=== PATIENT | male | born 1950 | race Caucasian/White ===

== ENCOUNTER 2020-05-08 17:27 | Observation (INO) ==
[2020-05-08] MEDS ORDERED: Naloxone 0.4 MG/ML INJ IVP PRN ×2 (19:46→19:49)
[2020-05-08] MEDS ORDERED: *HR* Promethazine 25 MG/ML VIAL IVP PRN (19:49)
[2020-05-08] MEDS: 0.9 % Sodium Chloride 1,000 ML IVC SCH (21:07)
[2020-05-08] MEDS: *HR* Heparin 5,000 UNIT/ML VIAL SQ SCH (21:12)
[2020-05-08] MEDS: Lactulose 200 GM, Sodium Chloride IRRigation 700 ML RC SCH (22:15)
[2020-05-09] MEDS: *HR* Heparin 5,000 UNIT/ML VIAL SQ SCH ×3 (04:33→19:51)
[2020-05-09] MEDS: 0.9 % Sodium Chloride 1,000 ML IVC SCH (04:34)
[2020-05-09 06:02] LABS: Basophils % 0.3 %; Hematocrit 38.7 % (37.5-50.1); Hemoglobin 12.5 g/dL (12.9-16.9); Lymphocytes % 19.8 %; Mean Corpuscular HGB Conc 32.3 g/dL (31.6-35.5); Red Cell Distribution Width 14.6 % (11.5-14.5)
[2020-05-09 06:04] LABS: Eosinophils # 0.1 K/mcL (0.0-0.6); Eosinophils % 1.9 %; Immature Granulocytes % 0.2 % (0-4); Immature Platelets 2.8 % (1.1-6.1); Lymphocytes # 1.2 K/mcL (0.6-4.6); Mean Corpuscular Hemoglobin 33.7 pg (28.0-33.3); Mean Corpuscular Volume 104.3 fL (83.0-100.0); Mean Platelet Volume 12.1 fL (9.4-12.4); Monocytes # 0.5 K/mcL (0.0-1.3); Monocytes % 8.4 %; Neutrophils # 4.1 K/mcL (1.6-8.9); Red Blood Count 3.71 M/mcL (4.19-5.50); Segmented Neutrophils % 69.4 %; White Blood Count 5.9 K/mcL (4.3-11.1)
[2020-05-09 06:10] LABS: INR 1.2
[2020-05-09 06:13] LABS: Platelet Count 69 K/mcL (140-400)
[2020-05-09 06:28] LABS: Albumin 2.7 g/dL (3.5-5.7); Albumin/Globulin Ratio 0.8 (1.1-2.2); Bilirubin,Total 1.7 mg/dL (0.3-1.0); Calcium 10.4 mg/dL (8.6-10.3); Globulin 3.2 g/dL (2.4-3.5); Phosphorous 2.7 mg/dL (2.7-4.5); Potassium 4.2 mEq/L (3.5-5.1); Total Protein 5.9 g/dL (6.4-8.9)
[2020-05-09 06:49] LABS: Folate 12.6 ng/mL (3.0-16.0)
[2020-05-09] MEDS: Lactulose 200 GM, Sodium Chloride IRRigation 700 ML RC SCH ×2 (08:05→08:07)
[2020-05-09] MEDS ORDERED: Lactulose Oral Soln 20 GM/30 ML UDC PO SCH (09:00)
[2020-05-09] MEDS ORDERED: Furosemide 40 MG TABLET PO SCH (09:00)
[2020-05-09] MEDS ORDERED: Metoprolol XL (24 HR) Succ 25 MG TAB.ER.24H PO SCH (09:00)
[2020-05-09] MEDS ORDERED: Albumin 25% 25gram/100mL 25 GM/100 ML IV.SOLN IVPB ONE (10:52)
[2020-05-09] MEDS ORDERED: Albumin 25% 25gram/100mL 25 GM/100 ML IV.SOLN IVC SCH ×2 (13:30→13:45)
[2020-05-09] MEDS: Lactulose Oral Soln 20 GM/30 ML UDC PO SCH ×2 (14:18→19:53)
[2020-05-09] MEDS ORDERED: Metoprolol XL (24 HR) Succ 50 MG TAB.ER.24H PO SCH (21:00)
[2020-05-10 04:06] LABS: Hematocrit 31.9 % (37.5-50.1); Hemoglobin 10.3 g/dL (12.9-16.9); Immature Platelets 4.6 % (1.1-6.1); Mean Corpuscular HGB Conc 32.3 g/dL (31.6-35.5); Mean Corpuscular Hemoglobin 33.9 pg (28.0-33.3); Mean Corpuscular Volume 104.9 fL (83.0-100.0); Mean Platelet Volume 12.8 fL (9.4-12.4); Red Blood Count 3.04 M/mcL (4.19-5.50); Red Cell Distribution Width 14.6 % (11.5-14.5); White Blood Count 3.7 K/mcL (4.3-11.1)
[2020-05-10 04:23] LABS: Albumin/Globulin Ratio 1.1 (1.1-2.2); Bilirubin,Total 1.8 mg/dL (0.3-1.0); Calcium 10.2 mg/dL (8.6-10.3); Globulin 2.7 g/dL (2.4-3.5); Potassium 3.9 mEq/L (3.5-5.1); Total Protein 5.7 g/dL (6.4-8.9)
[2020-05-10] MEDS: *HR* Heparin 5,000 UNIT/ML VIAL SQ SCH (05:40)
[2020-05-10 06:53] VITALS: BP 142/67
[2020-05-10] MEDS ORDERED: Albumin 25% 25gram/100mL 25 GM/100 ML IV.SOLN IVC SCH (09:00)
== END 2020-05-10 11:52 | disposition home or self-care (01) ==
LOC: 2NNU → SUATTDRO 19:09 → 3ANU 05-09 17:39
PROVIDERS: ADMIT Pharmacist; ATTEND Internal Medicine

== ENCOUNTER 2020-07-10 16:01 | Inpatient (IN) ==
[2020-07-10] MEDS ORDERED: Ondansetron 4 MG/2 ML VIAL IVP PRN (18:11)
[2020-07-10] MEDS ORDERED: 0.9 % Sodium Chloride 1,000 ML IVC SCH (18:30)
[2020-07-10] MEDS: Lactulose Oral Soln 20 GM/30 ML UDC PO SCH (18:30)
[2020-07-10] MEDS: Lactulose 200 GM, Sodium Chloride IRRigation 700 ML RC SCH (21:00)
[2020-07-11] MEDS: Lactulose Oral Soln 20 GM/30 ML UDC PO SCH ×6 (00:11→23:31)
[2020-07-11] MEDS: Lactulose 200 GM, Sodium Chloride IRRigation 700 ML RC SCH ×4 (00:39→23:32)
[2020-07-11 01:58] LABS: INR 1.2; Mean Corpuscular HGB Conc 32.8 g/dL (31.6-35.5); Red Cell Distribution Width 14.8 % (11.5-14.5)
[2020-07-11 02:00] LABS: Hematocrit 33.8 % (37.5-50.1); Hemoglobin 11.1 g/dL (12.9-16.9); Immature Platelets 3.1 % (1.1-6.1); Mean Corpuscular Hemoglobin 34.5 pg (28.0-33.3); Mean Platelet Volume 12.2 fL (9.4-12.4); Red Blood Count 3.22 M/mcL (4.19-5.50); White Blood Count 4.8 K/mcL (4.3-11.1)
[2020-07-11 02:17] LABS: Albumin 2.7 g/dL (3.5-5.7); Bilirubin,Direct 0.5 mg/dL (0.0-0.2); Bilirubin,Indirect 1.7 mg/dL (0.0-1.0); Bilirubin,Total 2.2 mg/dL (0.3-1.0); Calcium 11.8 mg/dL (8.6-10.3); Globulin 2.7 g/dL (2.4-3.5); Phosphorous 2.6 mg/dL (2.7-4.5); Potassium 3.9 mEq/L (3.5-5.1); Total Protein 5.4 g/dL (6.4-8.9)
[2020-07-11] MEDS ORDERED: Dextrose Gel 15 GM/37.5 ML TUBE PO PRN ×2 (08:23)
[2020-07-11] MEDS ORDERED: *HR* Dextrose 50 % in Water (Vial) 50 ML VIAL IVP PRN (08:23)
[2020-07-11] MEDS ORDERED: D5% in Water 1,000 ML IVC PRN (08:23)
[2020-07-11] MEDS: Albumin Human 5% 12.5 GM/250 ML IV.SOLN IVC SCH ×2 (09:11→13:17)
[2020-07-11] MEDS: Insulin LISPRO 300 UNITS/3 ML VIAL SQ SCH ×3 (13:13→23:58)
[2020-07-11 18:25] LABS: Hemoglobin 10.2 g/dL (12.9-16.9)
[2020-07-12 06:49] LABS: INR 1.2; Prothrombin Time 13.7 Seconds (9.4-12.1)
[2020-07-12 06:51] LABS: Hemoglobin 9.9 g/dL (12.9-16.9); Mean Corpuscular Volume 106.8 fL (83.0-100.0)
[2020-07-12 06:53] LABS: Hematocrit 29.7 % (37.5-50.1); Immature Platelets 2.9 % (1.1-6.1); Mean Corpuscular HGB Conc 33.3 g/dL (31.6-35.5); Mean Corpuscular Hemoglobin 35.6 pg (28.0-33.3); Mean Platelet Volume 12.4 fL (9.4-12.4); Red Blood Count 2.78 M/mcL (4.19-5.50); Red Cell Distribution Width 14.6 % (11.5-14.5); White Blood Count 3.3 K/mcL (4.3-11.1)
[2020-07-12 07:14] LABS: Albumin 2.7 g/dL (3.5-5.7); Albumin/Globulin Ratio 1.1 (1.1-2.2); Bilirubin,Direct 0.5 mg/dL (0.0-0.2); Bilirubin,Indirect 1.5 mg/dL (0.0-1.0); Calcium 11.6 mg/dL (8.6-10.3); Globulin 2.4 g/dL (2.4-3.5); Magnesium 1.9 mg/dL (1.6-2.6); Phosphorous 5.4 mg/dL (2.7-4.5); Potassium 3.3 mEq/L (3.5-5.1); Total Protein 5.1 g/dL (6.4-8.9)
[2020-07-12] MEDS: Insulin LISPRO 300 UNITS/3 ML VIAL SQ SCH ×4 (09:47→23:42)
[2020-07-12] MEDS: Lactulose 200 GM, Sodium Chloride IRRigation 700 ML RC SCH ×2 (10:05→11:35)
[2020-07-12] MEDS: Lactulose Oral Soln 20 GM/30 ML UDC PO SCH ×4 (10:05→20:21)
[2020-07-13] MEDS: Lactulose Oral Soln 20 GM/30 ML UDC PO SCH ×5 (00:27→20:32)
[2020-07-13 05:26] LABS: Immature Granulocytes % 0.3 % (0-4)
[2020-07-13 05:28] LABS: Basophils % 0.8 %; Eosinophils # 0.2 K/mcL (0.0-0.6); Eosinophils % 4.2 %; Hematocrit 30.9 % (37.5-50.1); Hemoglobin 10.2 g/dL (12.9-16.9); Immature Platelets 3.8 % (1.1-6.1); Lymphocytes # 0.7 K/mcL (0.6-4.6); Lymphocytes % 20.3 %; Mean Corpuscular Hemoglobin 34.8 pg (28.0-33.3); Mean Corpuscular Volume 105.5 fL (83.0-100.0); Mean Platelet Volume 11.5 fL (9.4-12.4); Monocytes # 0.3 K/mcL (0.0-1.3); Monocytes % 8.8 %; Neutrophils # 2.3 K/mcL (1.6-8.9); Red Blood Count 2.93 M/mcL (4.19-5.50); Red Cell Distribution Width 15.2 % (11.5-14.5); Segmented Neutrophils % 65.6 %; White Blood Count 3.5 K/mcL (4.3-11.1)
[2020-07-13 05:30] LABS: Platelet Count 54 K/mcL (140-400)
[2020-07-13 05:42] LABS: Calcium 11.5 mg/dL (8.6-10.3); Phosphorous 4.1 mg/dL (2.7-4.5); Potassium 4.1 mEq/L (3.5-5.1)
[2020-07-13] MEDS: Insulin LISPRO 300 UNITS/3 ML VIAL SQ SCH ×3 (06:14→16:55)
[2020-07-13] MEDS: amLODIPine 5 MG TABLET PO SCH (08:40)
[2020-07-13] MEDS: Metoprolol XL (24 HR) Succ 25 MG TAB.ER.24H PO SCH (08:40)
[2020-07-13] MEDS: Vitamin B Complex/Vit C/Vit E 1 EACH TABLET PO SCH (08:40)
[2020-07-14] MEDS: Lactulose Oral Soln 20 GM/30 ML UDC PO SCH ×6 (02:32→23:15)
[2020-07-14 03:11] LABS: VBG Ionized Calcium 1.62 mmol/L (1.15-1.35)
[2020-07-14 03:25] LABS: Calcium 10.9 mg/dL (8.6-10.3); Magnesium 1.8 mg/dL (1.6-2.6); Phosphorous 2.7 mg/dL (2.7-4.5); Potassium 4.4 mEq/L (3.5-5.1)
[2020-07-14] MEDS: amLODIPine 5 MG TABLET PO SCH (08:06)
[2020-07-14] MEDS: Spironolactone 25 MG TABLET PO SCH (08:06)
[2020-07-14] MEDS: Vitamin B Complex/Vit C/Vit E 1 EACH TABLET PO SCH (08:06)
[2020-07-14] MEDS: Metoprolol XL (24 HR) Succ 25 MG TAB.ER.24H PO SCH (08:07)
[2020-07-15] MEDS: Metoprolol XL (24 HR) Succ 25 MG TAB.ER.24H PO SCH (07:50)
[2020-07-15] MEDS: Spironolactone 25 MG TABLET PO SCH (07:50)
[2020-07-15] MEDS: amLODIPine 5 MG TABLET PO SCH (07:50)
[2020-07-15] MEDS: Vitamin B Complex/Vit C/Vit E 1 EACH TABLET PO SCH (07:50)
[2020-07-15] MEDS: Lactulose Oral Soln 20 GM/30 ML UDC PO SCH ×5 (07:51→23:07)
[2020-07-15 08:28] LABS: Calcium 11.5 mg/dL (8.6-10.3); Magnesium 1.8 mg/dL (1.6-2.6); Potassium 4.7 mEq/L (3.5-5.1)
[2020-07-15] MEDS ORDERED: 0.9 % Sodium Chloride 1,000 ML IVC SCH (09:30)
[2020-07-15] MEDS ORDERED: Isovue-370 500 ML BOTTLE IVP ONE (09:31)
[2020-07-15 13:34] LABS: % Iron Saturation 84 % (20-55); Iron 138 mcg/dL (65-175); Transferrin 118 mg/dL (203-362)
[2020-07-15 13:39] LABS: Ferritin 425 ng/mL (20-250)
[2020-07-15] MEDS ORDERED: Gadolinium Contrast Agent (WT Based) IV PRN (14:17)
[2020-07-16 02:29] LABS: Basophils % 0.8 %; Eosinophils # 0.3 K/mcL (0.0-0.6); Eosinophils % 6.2 %; Hematocrit 34.2 % (37.5-50.1); Hemoglobin 11.3 g/dL (12.9-16.9); Immature Granulocytes % 0.4 % (0-4); Lymphocytes # 1.5 K/mcL (0.6-4.6); Lymphocytes % 32.7 %; Mean Corpuscular Hemoglobin 34.9 pg (28.0-33.3); Mean Corpuscular Volume 105.6 fL (83.0-100.0); Mean Platelet Volume 11.8 fL (9.4-12.4); Monocytes # 0.4 K/mcL (0.0-1.3); Monocytes % 8.3 %; Neutrophils # 2.4 K/mcL (1.6-8.9); Platelet Count 69 K/mcL (140-400); Red Blood Count 3.24 M/mcL (4.19-5.50); Red Cell Distribution Width 15.4 % (11.5-14.5); Segmented Neutrophils % 51.6 %; White Blood Count 4.7 K/mcL (4.3-11.1)
[2020-07-16 02:47] LABS: Calcium 12.2 mg/dL (8.6-10.3); Magnesium 1.8 mg/dL (1.6-2.6); Phosphorous 3.6 mg/dL (2.7-4.5); Potassium 4.6 mEq/L (3.5-5.1)
[2020-07-16] MEDS: Lactulose Oral Soln 20 GM/30 ML UDC PO SCH ×4 (09:24→20:12)
[2020-07-16] MEDS: Metoprolol XL (24 HR) Succ 25 MG TAB.ER.24H PO SCH (09:29)
[2020-07-16] MEDS: Vitamin B Complex/Vit C/Vit E 1 EACH TABLET PO SCH (09:29)
[2020-07-16] MEDS: amLODIPine 5 MG TABLET PO SCH (09:29)
[2020-07-16 12:23] LABS: Bilirubin,Urine Negative (Negative); Blood,Urine Negative (Negative); Clarity,Urine Clear (Clear); Color,Urine Yellow (Yellow); Glucose,Urine (UA) Normal (Normal); Ketones,Urine Negative (Negative); Leukocyte Esterase,Urine Negative (Negative); Nitrite,Urine Negative (Negative); PH,Urine 5.5 pH Units (5.0-8.0); Protein,Urine Negative (Neg-Trace); Specific Gravity,Urine 1.024 (1.010-1.025); Urobilinogen,Urine Normal (Normal)
[2020-07-16 12:40] LABS: Potassium,Urine 29.1 mEq/L; Protein/Creatinine Ratio,Urine 0.15 mg/mg (0.00-0.20); Sodium, Urine 14.3 mEq/L
[2020-07-16] MEDS ORDERED: *HR* Midazolam HCl 2 MG/2 ML VIAL IVP ONE (13:17)
[2020-07-16] MEDS ORDERED: *HR* FentaNYL (PF) 100 MCG/2 ML VIAL IVP ONE (13:17)
[2020-07-17 00:48] LABS: Mean Corpuscular Volume 107.9 fL (83.0-100.0)
[2020-07-17 00:49] LABS: Hematocrit 31.3 % (37.5-50.1); Immature Platelets 3.4 % (1.1-6.1); Mean Corpuscular HGB Conc 31.9 g/dL (31.6-35.5); Mean Corpuscular Hemoglobin 34.5 pg (28.0-33.3); Red Blood Count 2.9 M/mcL (4.19-5.50); Red Cell Distribution Width 15.4 % (11.5-14.5)
[2020-07-17 01:07] LABS: Calcium 11.8 mg/dL (8.6-10.3); Potassium 4.9 mEq/L (3.5-5.1)
[2020-07-17] MEDS: Metoprolol XL (24 HR) Succ 25 MG TAB.ER.24H PO SCH (07:34)
[2020-07-17] MEDS: Lactulose Oral Soln 20 GM/30 ML UDC PO SCH (07:34)
[2020-07-17] MEDS: amLODIPine 5 MG TABLET PO SCH (07:35)
[2020-07-17] MEDS: Vitamin B Complex/Vit C/Vit E 1 EACH TABLET PO SCH (07:35)
[2020-07-17 12:43] VITALS: BP 118/74
== END 2020-07-17 14:38 | DRG 432 ==
LOC: 2ANU → SUATTDRO 18:11
PROVIDERS: ADMIT Internal Medicine; ATTEND Internal Medicine
PROC: IRLIVER (2020-07-16 12:00)

== ENCOUNTER 2020-07-30 20:15 | Inpatient (IN) ==
[2020-07-30 22:52] LABS: Adenovirus Not Detected (Not Detect); Bordetella Pertussis Not Detected (Not Detect); Chlamydophila pneumoniae Not Detected (Not Detect); Coronavirus 229E Not Detected (Not Detect); Coronavirus HKU1 Not Detected (Not Detect); Coronavirus NL63 Not Detected (Not Detect); Coronavirus OC43 Not Detected (Not Detect); Human Metapneumovirus Not Detected (Not Detect); Human Rhinovirus/Enterovirus Not Detected (Not Detect); Influenza A Subtype 2009 H1 Not Detected (Not Detect); Influenza B Not Detected (Not Detect); Mycoplasma pneumoniae Not Detected (Not Detect); Parainfluenza Virus 1 Not Detected (Not Detect); Parainfluenza Virus 2 Not Detected (Not Detect); Parainfluenza Virus 3 Not Detected (Not Detect); Parainfluenza Virus 4 Not Detected (Not Detect); Respiratory Syncytial Virus Not Detected (Not Detect); SARS-CoV-2 Not Detected (Not Detect)
[2020-07-30] MEDS ORDERED: Naloxone 0.4 MG/ML INJ IVP PRN (23:47)
[2020-07-31] MEDS ORDERED: Dextrose Gel 15 GM/37.5 ML TUBE PO PRN ×2 (00:31)
[2020-07-31] MEDS ORDERED: D5% in Water 1,000 ML IVC PRN (00:31)
[2020-07-31] MEDS ORDERED: *HR* Dextrose 50 % in Water (Vial) 50 ML VIAL IVP PRN (00:31)
[2020-07-31] MEDS ORDERED: 0.9 % Sodium Chloride 1,000 ML IVC SCH (00:45)
[2020-07-31 01:02] LABS: ABG Base Excess -7 mEq/L (-2 to 3); ABG HCO3 18 mEq/L (21-27); ABG Oxygen Saturation 99 % (95-98); ABG PCO2 34 mmHg (35-45); ABG PH 7.33 pH Units (7.32-7.45); ABG PO2 125 mmHg (85-104); ABG TCO2 19 mEq/L (20-26); Blood Gas Modality NIV
[2020-07-31 01:16] LABS: Basophils % 0.5 %
[2020-07-31 01:18] LABS: Eosinophils # 0.1 K/mcL (0.0-0.6); Eosinophils % 2.9 %; Hematocrit 30.9 % (37.5-50.1); Hemoglobin 9.7 g/dL (12.9-16.9); Immature Granulocytes % 0.2 % (0-4); Immature Platelets 2.3 % (1.1-6.1); Lymphocytes # 0.3 K/mcL (0.6-4.6); Lymphocytes % 6.6 %; Mean Corpuscular HGB Conc 31.4 g/dL (31.6-35.5); Mean Corpuscular Hemoglobin 34.5 pg (28.0-33.3); Mean Platelet Volume 11.3 fL (9.4-12.4); Monocytes # 0.2 K/mcL (0.0-1.3); Monocytes % 4.8 %; Nucleated Red Blood Cells 0.5 /100 WBC (0); Red Blood Count 2.81 M/mcL (4.19-5.50); Red Cell Distribution Width 16.8 % (11.5-14.5); White Blood Count 4.4 K/mcL (4.3-11.1)
[2020-07-31 01:22] LABS: Neutrophils # 3.7 K/mcL (1.6-8.9); Platelet Count 67 K/mcL (140-400)
[2020-07-31] MEDS: 0.9 % Sodium Chloride 1,000 ML IVC SCH ×3 (01:30→16:39)
[2020-07-31] MEDS ORDERED: *HR* Promethazine 25 MG/ML VIAL IVP PRN (01:38)
[2020-07-31 01:40] LABS: Calcium 13.7 mg/dL (8.6-10.3); Magnesium 1.8 mg/dL (1.6-2.6); Phosphorous 6.2 mg/dL (2.7-4.5); Potassium 5.4 mEq/L (3.5-5.1)
[2020-07-31 02:12] LABS: Platelet Estimate Decreased (Normal)
[2020-07-31 06:16] LABS: Albumin 2.4 g/dL (3.5-5.7); Albumin/Globulin Ratio 1.1 (1.1-2.2); Bilirubin,Direct 0.5 mg/dL (0.0-0.2); Bilirubin,Total 1.5 mg/dL (0.3-1.0); Calcium 13.3 mg/dL (8.6-10.3); Globulin 2.2 g/dL (2.4-3.5); Magnesium 1.7 mg/dL (1.6-2.6); Potassium 5.1 mEq/L (3.5-5.1); Total Protein 4.6 g/dL (6.4-8.9)
[2020-07-31] MEDS: Dexmedetomidine HCl 400 MCG/100 ML MLS IVC SCH (06:22)
[2020-07-31] MEDS: *HR* Heparin 5,000 UNIT/ML VIAL SQ SCH ×2 (06:37→16:39)
[2020-07-31 07:11] LABS: Thyroid Stimulating Hormone 3.341 mcIU/mL (0.340-5.600)
[2020-07-31 07:50] LABS: VBG Ionized Calcium 1.93 mmol/L (1.15-1.35)
[2020-07-31] MEDS ORDERED: 0.9 % Sodium Chloride 1,000 ML IVC ONE (07:57)
[2020-07-31] MEDS ORDERED: *HR* Midazolam HCl 2 MG/2 ML VIAL IVP PRN (09:06)
[2020-07-31] MEDS ORDERED: *HR* Midazolam HCl 5 MG/5 ML VIAL IVP ONE (09:11)
[2020-07-31] MEDS ORDERED: *HR* FentaNYL (PF) 100 MCG/2 ML VIAL IVP PRN (09:56)
[2020-07-31] MEDS: Piperacillin/Tazobactam 3.375 GM in 0.9 % Sodium Chloride Mini Bag 100 ML IVPB SCH ×2 (10:01→16:39)
[2020-07-31] MEDS: Pantoprazole 40 MG VIAL IVP SCH (10:02)
[2020-07-31 10:52] LABS: ABG Base Excess -8 mEq/L (-2 to 3); ABG HCO3 19 mEq/L (21-27); ABG Oxygen Saturation 93 % (95-98); ABG PCO2 49 mmHg (35-45); ABG PH 7.21 pH Units (7.32-7.45); ABG PO2 81 mmHg (85-104); ABG TCO2 21 mEq/L (20-26); Blood Gas Pressure Support 16 cm H2O
[2020-07-31 11:55] LABS: VBG Ionized Calcium 2.05 mmol/L (1.15-1.35)
[2020-07-31] MEDS: Calcitonin-Salmon, Synthetic 400 UNIT/2 ML VIAL IM SCH (13:51)
[2020-07-31] MEDS: Norepinephrine 4 MG/254 ML IV.SOLN IVC SCH (14:18)
[2020-07-31 15:38] LABS: ABG Base Excess -7 mEq/L (-2 to 3); ABG HCO3 20 mEq/L (21-27); ABG Oxygen Saturation 93 % (95-98); ABG PCO2 46 mmHg (35-45); ABG PH 7.24 pH Units (7.32-7.45); ABG PO2 81 mmHg (85-104); ABG TCO2 21 mEq/L (20-26); Blood Gas Pressure Support 16 cm H2O
[2020-07-31 18:43] LABS: Uric Acid 5.6 mg/dL (2.3-7.6)
[2020-07-31 18:51] LABS: Calcium 11.9 mg/dL (8.6-10.3); Potassium 5.3 mEq/L (3.5-5.1)
[2020-07-31 19:00] LABS: VBG Ionized Calcium 1.89 mmol/L (1.15-1.35)
[2020-07-31] MEDS ORDERED: Calcitonin-Salmon, Synthetic 400 UNIT/2 ML VIAL IM SCH (21:30)
[2020-08-01] MEDS: Piperacillin/Tazobactam 3.375 GM in 0.9 % Sodium Chloride Mini Bag 100 ML IVPB SCH ×3 (00:42→21:07)
[2020-08-01] MEDS: 0.9 % Sodium Chloride 1,000 ML IVC SCH ×3 (00:45→16:45)
[2020-08-01] MEDS: Dexmedetomidine HCl 400 MCG/100 ML MLS IVC SCH (00:45)
[2020-08-01 04:04] LABS: Bilirubin,Urine Negative (Negative); Blood,Urine Moderate (Negative); Clarity,Urine Clear (Clear); Color,Urine Yellow (Yellow); Glucose,Urine (UA) Normal (Normal); Ketones,Urine Negative (Negative); Leukocyte Esterase,Urine Trace (Negative); Nitrite,Urine Negative (Negative); Protein,Urine 30 mg/dL (Neg-Trace); Specific Gravity,Urine 1.025 (1.010-1.025); Urobilinogen,Urine Normal (Normal)
[2020-08-01 04:07] LABS: Protein/Creatinine Ratio,Urine 0.67 mg/mg (0.00-0.20); Sodium, Urine 28.1 mEq/L
[2020-08-01 04:44] LABS: Bacteria,Urine Few per hpf (None-Few); Squamous Epithelial Cell,Urine Few per hpf (None-Few); WBC,Urine 0-3 per hpf (0-3)
[2020-08-01 04:57] LABS: Basophils % 0.3 %; Red Blood Count 2.13 M/mcL (4.19-5.50); Red Cell Distribution Width 17.2 % (11.5-14.5)
[2020-08-01 04:58] LABS: Eosinophils # 0.1 K/mcL (0.0-0.6); Eosinophils % 3.3 %; Hematocrit 24.5 % (37.5-50.1); Hemoglobin 7.6 g/dL (12.9-16.9); Immature Granulocytes % 0.6 % (0-4); Immature Platelets 3.1 % (1.1-6.1); Lymphocytes # 0.4 K/mcL (0.6-4.6); Lymphocytes % 12.1 %; Mean Corpuscular Hemoglobin 35.7 pg (28.0-33.3); Mean Platelet Volume 11.7 fL (9.4-12.4); Monocytes # 0.3 K/mcL (0.0-1.3); Monocytes % 7.9 %; Neutrophils # 2.5 K/mcL (1.6-8.9); Segmented Neutrophils % 75.8 %; White Blood Count 3.3 K/mcL (4.3-11.1)
[2020-08-01 05:07] LABS: Platelet Count 38 K/mcL (140-400)
[2020-08-01 05:18] LABS: Albumin 2.3 g/dL (3.5-5.7); Albumin/Globulin Ratio 1.1 (1.1-2.2); Bilirubin,Total 1.1 mg/dL (0.3-1.0); Calcium 11.3 mg/dL (8.6-10.3); Globulin 2.1 g/dL (2.4-3.5); Potassium 5.6 mEq/L (3.5-5.1); Total Protein 4.4 g/dL (6.4-8.9)
[2020-08-01 05:25] LABS: Anisocytosis 1+ (Not Present); Macrocytosis Present (Not Present); Platelet Estimate Decreased (Normal)
[2020-08-01] MEDS ORDERED: Albuterol Neb 7.5 MG, Sodium Chloride for inhalation 12 ML IH ONE (05:50)
[2020-08-01] MEDS: Calcitonin-Salmon, Synthetic 400 UNIT/2 ML VIAL IM SCH (06:00)
[2020-08-01] MEDS: *HR* Heparin 5,000 UNIT/ML VIAL SQ SCH ×2 (06:28→18:30)
[2020-08-01] MEDS ORDERED: Albuterol 2.5 MG/3 ML NEBULIZER ONE (06:39)
[2020-08-01] MEDS: Pantoprazole 40 MG VIAL IVP SCH (08:06)
[2020-08-01] MEDS: Norepinephrine 4 MG/254 ML IV.SOLN IVC SCH (08:07)
[2020-08-01] MEDS ORDERED: Vancomycin 1 EACH in 0.9 % Sodium Chloride 250 ML IVPB PRN ×2 (10:00→12:45)
[2020-08-01] MEDS ORDERED: Vancomycin 1,500 MG/265 ML IV.SOLN IVPB ONE (10:26)
[2020-08-01] MEDS ORDERED: Calcitonin-Salmon, Synthetic 400 UNIT/2 ML VIAL IM ONE (10:30)
[2020-08-01 11:56] LABS: Calcium 11.3 mg/dL (8.6-10.3); Phosphorous 5.8 mg/dL (2.7-4.5); Potassium 5.5 mEq/L (3.5-5.1)
[2020-08-01] MEDS ORDERED: *HR* Promethazine 25 MG/ML VIAL IVP PRN (12:45)
[2020-08-01] MEDS ORDERED: Dexmedetomidine HCl 400 MCG/100 ML MLS IVC SCH (12:45)
[2020-08-01] MEDS ORDERED: *HR* Dextrose 50 % in Water (Vial) 50 ML VIAL IVP PRN (12:45)
[2020-08-01] MEDS ORDERED: *HR* FentaNYL (PF) 100 MCG/2 ML VIAL IVP PRN (12:45)
[2020-08-01] MEDS ORDERED: Norepinephrine 4 MG/254 ML IV.SOLN IVC SCH (12:45)
[2020-08-01] MEDS ORDERED: D5% in Water 1,000 ML IVC PRN (12:45)
[2020-08-01] MEDS ORDERED: Naloxone 0.4 MG/ML INJ IVP PRN (12:45)
[2020-08-01] MEDS ORDERED: *HR* Midazolam HCl 2 MG/2 ML VIAL IVP PRN (12:45)
[2020-08-01] MEDS ORDERED: Dextrose Gel 15 GM/37.5 ML TUBE PO PRN ×2 (12:45)
[2020-08-01] MEDS ORDERED: Piperacillin/Tazobactam 3.375 GM in 0.9 % Sodium Chloride Mini Bag 100 ML IVPB SCH (16:00)
[2020-08-01] MEDS: Lactulose Oral Soln 20 GM/30 ML UDC PO SCH ×2 (16:43→21:06)
[2020-08-01] MEDS ORDERED: *HR* OxyCODONE Immed Rel 5 MG TABLET PO ONE (18:33)
[2020-08-02] MEDS: 0.9 % Sodium Chloride 1,000 ML IVC SCH ×3 (00:14→11:21)
[2020-08-02] MEDS ORDERED: *HR* OxyCODONE Immed Rel 5 MG TABLET PO ONE (00:15)
[2020-08-02] MEDS: *HR* Heparin 5,000 UNIT/ML VIAL SQ SCH ×2 (05:32→17:40)
[2020-08-02] MEDS ORDERED: Haloperidol Lactate 5 MG/ML VIAL IVP ONE (07:34)
[2020-08-02] MEDS: Lactulose Oral Soln 20 GM/30 ML UDC PO SCH ×3 (08:00→21:58)
[2020-08-02 08:12] LABS: Nucleated Red Blood Cells 0.3 /100 WBC (0); Red Cell Distribution Width 17.5 % (11.5-14.5)
[2020-08-02 08:14] LABS: Basophils # 0.1 K/mcL (0.0-0.2); Basophils % 0.7 %; Eosinophils # 0.2 K/mcL (0.0-0.6); Hematocrit 26.1 % (37.5-50.1); Hemoglobin 8.4 g/dL (12.9-16.9); Immature Granulocytes % 1.2 % (0-4); Immature Platelets 1.3 % (1.1-6.1); Lymphocytes # 0.9 K/mcL (0.6-4.6); Lymphocytes % 11.1 %; Mean Corpuscular HGB Conc 32.2 g/dL (31.6-35.5); Mean Corpuscular Hemoglobin 36.7 pg (28.0-33.3); Mean Platelet Volume 11.1 fL (9.4-12.4); Monocytes # 0.6 K/mcL (0.0-1.3); Monocytes % 7.4 %; Neutrophils # 5.9 K/mcL (1.6-8.9); Red Blood Count 2.29 M/mcL (4.19-5.50); Segmented Neutrophils % 76.6 %; White Blood Count 7.7 K/mcL (4.3-11.1)
[2020-08-02] MEDS: Piperacillin/Tazobactam 3.375 GM in 0.9 % Sodium Chloride Mini Bag 100 ML IVPB SCH (08:22)
[2020-08-02] MEDS: allopurinoL 100 MG TABLET PO SCH (08:22)
[2020-08-02 08:29] LABS: Calcium 11.4 mg/dL (8.6-10.3); Potassium 5.1 mEq/L (3.5-5.1)
[2020-08-02 08:37] LABS: Platelet Count 75 K/mcL (140-400)
[2020-08-02] MEDS ORDERED: Pantoprazole 40 MG VIAL IVP SCH (09:00)
[2020-08-02 09:01] LABS: Anisocytosis 1+ (Not Present); Macrocytosis Present (Not Present); Platelet Estimate Decreased (Normal)
[2020-08-02] MEDS ORDERED: 0.9 % Sodium Chloride 250 ML IVC PRN (09:17)
[2020-08-02] MEDS ORDERED: 0.9 % Sodium Chloride 1,000 ML PRIME SCH (09:30)
[2020-08-02] MEDS ORDERED: *HR* Heparin 5,000 UNIT/ML VIAL ONE (10:52)
[2020-08-02 12:46] LABS: Hepatitis B Surface Antibody < 3.10 mIU/mL
[2020-08-02 12:58] LABS: Hepatitis B Surface Antigen Nonreactive (Nonreactive)
[2020-08-02] MEDS ORDERED: *HR* Heparin 10,000 UNIT/10 ML VIAL IV PRN (15:53)
[2020-08-03] MEDS: Haloperidol Lactate 5 MG/ML VIAL IVP PRN ×3 (01:41→21:34)
[2020-08-03 03:49] LABS: Basophils % 0.7 %; Hemoglobin 7.1 g/dL (12.9-16.9); Mean Corpuscular Volume 113.1 fL (83.0-100.0)
[2020-08-03 03:51] LABS: Eosinophils # 0.1 K/mcL (0.0-0.6); Eosinophils % 3.9 %; Hematocrit 22.5 % (37.5-50.1); Immature Granulocytes % 1.6 % (0-4); Immature Platelets 1.9 % (1.1-6.1); Lymphocytes # 0.4 K/mcL (0.6-4.6); Lymphocytes % 14.3 %; Mean Corpuscular HGB Conc 31.6 g/dL (31.6-35.5); Mean Corpuscular Hemoglobin 35.7 pg (28.0-33.3); Mean Platelet Volume 10.9 fL (9.4-12.4); Monocytes # 0.4 K/mcL (0.0-1.3); Monocytes % 11.4 %; Neutrophils # 2.1 K/mcL (1.6-8.9); Red Blood Count 1.99 M/mcL (4.19-5.50); Red Cell Distribution Width 17.4 % (11.5-14.5); Segmented Neutrophils % 68.1 %; White Blood Count 3.1 K/mcL (4.3-11.1)
[2020-08-03 03:52] LABS: Platelet Count 37 K/mcL (140-400)
[2020-08-03 04:05] LABS: Albumin 2.2 g/dL (3.5-5.7); Bilirubin,Direct 0.4 mg/dL (0.0-0.2); Bilirubin,Indirect 0.6 mg/dL (0.0-1.0); Globulin 2.2 g/dL (2.4-3.5); Total Protein 4.4 g/dL (6.4-8.9)
[2020-08-03 04:06] LABS: Calcium 9.5 mg/dL (8.6-10.3); Magnesium 1.5 mg/dL (1.6-2.6); Phosphorous 4.6 mg/dL (2.7-4.5); Potassium 3.6 mEq/L (3.5-5.1)
[2020-08-03 05:20] LABS: Anisocytosis 1+ (Not Present); Hypochromasia Present (Not Present); Macrocytosis Present (Not Present)
[2020-08-03 05:21] LABS: Platelet Estimate Marked Decrease (Normal); Polychromasia 1+ (Not Present)
[2020-08-03] MEDS: *HR* Heparin 5,000 UNIT/ML VIAL SQ SCH ×2 (05:48→17:25)
[2020-08-03] MEDS: Lactulose Oral Soln 20 GM/30 ML UDC PO SCH ×3 (08:35→21:36)
[2020-08-03] MEDS: allopurinoL 100 MG TABLET PO SCH (08:36)
[2020-08-03] MEDS ORDERED: 0.9 % Sodium Chloride 250 ML ONE (13:57)
[2020-08-04 04:57] LABS: Basophils % 1.1 %; Eosinophils # 0.1 K/mcL (0.0-0.6); Eosinophils % 3.6 %; Hematocrit 23.9 % (37.5-50.1); Hemoglobin 7.6 g/dL (12.9-16.9); Immature Granulocytes % 1.8 % (0-4); Immature Platelets 1.3 % (1.1-6.1); Lymphocytes # 0.4 K/mcL (0.6-4.6); Lymphocytes % 14.6 %; Mean Corpuscular HGB Conc 31.8 g/dL (31.6-35.5); Mean Corpuscular Hemoglobin 34.7 pg (28.0-33.3); Mean Corpuscular Volume 109.1 fL (83.0-100.0); Mean Platelet Volume 11.6 fL (9.4-12.4); Monocytes # 0.3 K/mcL (0.0-1.3); Neutrophils # 1.8 K/mcL (1.6-8.9); Red Blood Count 2.19 M/mcL (4.19-5.50); Red Cell Distribution Width 20.7 % (11.5-14.5); Segmented Neutrophils % 66.9 %; White Blood Count 2.7 K/mcL (4.3-11.1)
[2020-08-04 04:58] LABS: Platelet Count 36 K/mcL (140-400)
[2020-08-04 05:15] LABS: Calcium 10.2 mg/dL (8.6-10.3); Magnesium 1.7 mg/dL (1.6-2.6); Phosphorous 5.1 mg/dL (2.7-4.5); Potassium 3.4 mEq/L (3.5-5.1)
[2020-08-04] MEDS: *HR* Heparin 5,000 UNIT/ML VIAL SQ SCH ×2 (05:28→16:36)
[2020-08-04] MEDS ORDERED: 0.9 % Sodium Chloride 250 ML IVC PRN (07:02)
[2020-08-04] MEDS ORDERED: *HR* Heparin 10,000 UNIT/10 ML VIAL IV PRN (07:33)
[2020-08-04] MEDS: Lactulose Oral Soln 20 GM/30 ML UDC PO SCH ×3 (07:52→20:47)
[2020-08-04] MEDS: allopurinoL 100 MG TABLET PO SCH (07:52)
[2020-08-04] MEDS: Haloperidol Lactate 5 MG/ML VIAL IVP PRN ×2 (16:55→23:40)
[2020-08-05 06:51] LABS: Basophils % 0.7 %; Hemoglobin 7.8 g/dL (12.9-16.9); Immature Granulocytes % 1.7 % (0-4)
[2020-08-05 06:53] LABS: Eosinophils # 0.1 K/mcL (0.0-0.6); Eosinophils % 3.4 %; Hematocrit 24.3 % (37.5-50.1); Immature Platelets 2.3 % (1.1-6.1); Lymphocytes # 0.5 K/mcL (0.6-4.6); Lymphocytes % 15.9 %; Mean Corpuscular HGB Conc 32.1 g/dL (31.6-35.5); Mean Corpuscular Hemoglobin 34.1 pg (28.0-33.3); Mean Corpuscular Volume 106.1 fL (83.0-100.0); Mean Platelet Volume 10.9 fL (9.4-12.4); Monocytes # 0.3 K/mcL (0.0-1.3); Monocytes % 9.2 %; Neutrophils # 2.1 K/mcL (1.6-8.9); Platelet Count 31 K/mcL (140-400); Red Blood Count 2.29 M/mcL (4.19-5.50); Red Cell Distribution Width 19.9 % (11.5-14.5); Segmented Neutrophils % 69.1 %
[2020-08-05 07:11] LABS: Calcium 9.8 mg/dL (8.6-10.3); Magnesium 1.6 mg/dL (1.6-2.6); Phosphorous 2.5 mg/dL (2.7-4.5); Potassium 3.1 mEq/L (3.5-5.1)
[2020-08-05] MEDS: allopurinoL 100 MG TABLET PO SCH (08:38)
[2020-08-05] MEDS: Metoprolol XL (24 HR) Succ 25 MG TAB.ER.24H PO SCH (08:38)
[2020-08-05] MEDS: Lactulose Oral Soln 20 GM/30 ML UDC PO SCH ×3 (08:39→20:31)
[2020-08-05] MEDS ORDERED: Potassium Chloride Elixir 20 MEQ/15 ML UDC PO ONE (13:54)
[2020-08-05] MEDS: Haloperidol Lactate 5 MG/ML VIAL IVP PRN (14:03)
[2020-08-06 06:13] LABS: Basophils % 0.5 %; Red Cell Distribution Width 19.3 % (11.5-14.5)
[2020-08-06 06:15] LABS: Eosinophils # 0.2 K/mcL (0.0-0.6); Eosinophils % 4.9 %; Hematocrit 25.6 % (37.5-50.1); Hemoglobin 8.2 g/dL (12.9-16.9); Immature Granulocytes % 1.9 % (0-4); Immature Platelets 2.7 % (1.1-6.1); Lymphocytes # 0.5 K/mcL (0.6-4.6); Lymphocytes % 13.5 %; Mean Corpuscular Volume 106.2 fL (83.0-100.0); Mean Platelet Volume 9.8 fL (9.4-12.4); Monocytes # 0.3 K/mcL (0.0-1.3); Monocytes % 9.2 %; Neutrophils # 2.6 K/mcL (1.6-8.9); Red Blood Count 2.41 M/mcL (4.19-5.50); White Blood Count 3.7 K/mcL (4.3-11.1)
[2020-08-06 06:17] LABS: Platelet Count 34 K/mcL (140-400)
[2020-08-06 06:33] LABS: Calcium 10.6 mg/dL (8.6-10.3); Magnesium 1.8 mg/dL (1.6-2.6); Phosphorous 2.8 mg/dL (2.7-4.5); Potassium 3.4 mEq/L (3.5-5.1)
[2020-08-06] MEDS ORDERED: 0.9 % Sodium Chloride 250 ML IVC PRN (07:05)
[2020-08-06] MEDS ORDERED: Potassium Chloride Elixir 20 MEQ/15 ML UDC PO ONE (07:35)
[2020-08-06] MEDS ORDERED: 0.9 % Sodium Chloride 1,000 ML ONE (07:43)
[2020-08-06] MEDS ORDERED: *HR* Heparin 10,000 UNIT/10 ML VIAL IV PRN (12:18)
[2020-08-06] MEDS: allopurinoL 100 MG TABLET PO SCH (14:37)
[2020-08-06] MEDS: Lactulose Oral Soln 20 GM/30 ML UDC PO SCH ×3 (14:38→21:14)
[2020-08-06] MEDS: Metoprolol XL (24 HR) Succ 25 MG TAB.ER.24H PO SCH (14:38)
[2020-08-06 15:50] LABS: Calcium 9.2 mg/dL (8.6-10.3); Potassium 3.5 mEq/L (3.5-5.1)
[2020-08-06] MEDS: QUEtiapine Fumarate 25 MG TABLET PO SCH (21:14)
[2020-08-07 06:05] LABS: Hemoglobin 7.8 g/dL (12.9-16.9)
[2020-08-07 06:06] LABS: Basophils % 0.4 %; Eosinophils # 0.1 K/mcL (0.0-0.6); Eosinophils % 3.6 %; Hematocrit 24.5 % (37.5-50.1); Immature Granulocytes % 1.4 % (0-4); Immature Platelets 4.1 % (1.1-6.1); Lymphocytes # 0.5 K/mcL (0.6-4.6); Lymphocytes % 16.5 %; Mean Corpuscular HGB Conc 31.8 g/dL (31.6-35.5); Mean Corpuscular Hemoglobin 33.8 pg (28.0-33.3); Mean Corpuscular Volume 106.1 fL (83.0-100.0); Mean Platelet Volume 11.6 fL (9.4-12.4); Monocytes # 0.3 K/mcL (0.0-1.3); Monocytes % 9.7 %; Neutrophils # 1.9 K/mcL (1.6-8.9); Red Blood Count 2.31 M/mcL (4.19-5.50); Red Cell Distribution Width 19.1 % (11.5-14.5); Segmented Neutrophils % 68.4 %; White Blood Count 2.8 K/mcL (4.3-11.1)
[2020-08-07 06:12] LABS: Platelet Count 30 K/mcL (140-400)
[2020-08-07 07:20] LABS: Calcium 9.1 mg/dL (8.6-10.3); Magnesium 1.7 mg/dL (1.6-2.6); Potassium 3.3 mEq/L (3.5-5.1)
[2020-08-07] MEDS: allopurinoL 100 MG TABLET PO SCH (08:52)
[2020-08-07] MEDS: Metoprolol XL (24 HR) Succ 25 MG TAB.ER.24H PO SCH (08:52)
[2020-08-07] MEDS: Lactulose Oral Soln 20 GM/30 ML UDC PO SCH ×3 (08:53→21:10)
[2020-08-07] MEDS ORDERED: Potassium Chloride 40 MEQ, Lidocaine 1% 2 ML in 0.9 % Sodium Chloride 500 ML IVPB ONE (08:54)
[2020-08-07] MEDS: QUEtiapine Fumarate 25 MG TABLET PO SCH (21:10)
[2020-08-08 05:33] LABS: Hematocrit 25.3 % (37.5-50.1); Mean Corpuscular HGB Conc 31.6 g/dL (31.6-35.5); Mean Corpuscular Volume 107.7 fL (83.0-100.0); Mean Platelet Volume 12.9 fL (9.4-12.4); Platelet Count 35 K/mcL (140-400); Red Blood Count 2.35 M/mcL (4.19-5.50); Red Cell Distribution Width 19.1 % (11.5-14.5)
[2020-08-08 05:46] LABS: Calcium 9.6 mg/dL (8.6-10.3); Phosphorous 2.7 mg/dL (2.7-4.5); Potassium 3.6 mEq/L (3.5-5.1)
[2020-08-08] MEDS ORDERED: 0.9 % Sodium Chloride 250 ML IVC PRN (06:16)
[2020-08-08] MEDS ORDERED: 0.9 % Sodium Chloride 2,000 ML ONE (07:06)
[2020-08-08 07:57] LABS: Magnesium 1.9 mg/dL (1.6-2.6)
[2020-08-08] MEDS: Metoprolol XL (24 HR) Succ 25 MG TAB.ER.24H PO SCH (09:14)
[2020-08-08] MEDS: Lactulose Oral Soln 20 GM/30 ML UDC PO SCH ×3 (09:15→19:09)
[2020-08-08] MEDS: allopurinoL 100 MG TABLET PO SCH (09:15)
[2020-08-08] MEDS ORDERED: *HR* Heparin 10,000 UNIT/10 ML VIAL IV PRN (11:34)
[2020-08-08] MEDS: QUEtiapine Fumarate 25 MG TABLET PO SCH (19:49)
[2020-08-09 04:18] LABS: Hematocrit 25.8 % (37.5-50.1); Mean Corpuscular Volume 108.9 fL (83.0-100.0); Red Blood Count 2.37 M/mcL (4.19-5.50)
[2020-08-09 04:20] LABS: Immature Platelets 5.2 % (1.1-6.1); Mean Corpuscular Hemoglobin 33.8 pg (28.0-33.3); Mean Platelet Volume 12.6 fL (9.4-12.4); Red Cell Distribution Width 19.2 % (11.5-14.5); White Blood Count 3.7 K/mcL (4.3-11.1)
[2020-08-09 04:38] LABS: Calcium 9.1 mg/dL (8.6-10.3); Potassium 3.7 mEq/L (3.5-5.1)
[2020-08-09] MEDS: allopurinoL 100 MG TABLET PO SCH (10:19)
[2020-08-09] MEDS: Lactulose Oral Soln 20 GM/30 ML UDC PO SCH ×3 (10:19→20:00)
[2020-08-09] MEDS: Metoprolol XL (24 HR) Succ 25 MG TAB.ER.24H PO SCH (10:19)
[2020-08-09] MEDS: QUEtiapine Fumarate 25 MG TABLET PO SCH (20:00)
[2020-08-10] MEDS: Metoprolol XL (24 HR) Succ 25 MG TAB.ER.24H PO SCH (08:33)
[2020-08-10] MEDS: Lactulose Oral Soln 20 GM/30 ML UDC PO SCH ×3 (08:33→19:39)
[2020-08-10] MEDS: allopurinoL 100 MG TABLET PO SCH (08:33)
[2020-08-10] MEDS: QUEtiapine Fumarate 25 MG TABLET PO SCH (19:39)
[2020-08-11 03:02] LABS: Hemoglobin 7.1 g/dL (12.9-16.9); Mean Corpuscular HGB Conc 30.9 g/dL (31.6-35.5); Red Cell Distribution Width 18.6 % (11.5-14.5)
[2020-08-11 03:03] LABS: Immature Platelets 4.1 % (1.1-6.1); Mean Corpuscular Hemoglobin 34.1 pg (28.0-33.3); Mean Corpuscular Volume 110.6 fL (83.0-100.0); Mean Platelet Volume 11.8 fL (9.4-12.4); Red Blood Count 2.08 M/mcL (4.19-5.50); White Blood Count 3.5 K/mcL (4.3-11.1)
[2020-08-11 03:19] LABS: Calcium 9.3 mg/dL (8.6-10.3); Magnesium 1.6 mg/dL (1.6-2.6); Phosphorous 2.7 mg/dL (2.7-4.5); Potassium 4.2 mEq/L (3.5-5.1)
[2020-08-11] MEDS ORDERED: 0.9 % Sodium Chloride 250 ML IVC PRN (07:58)
[2020-08-11] MEDS ORDERED: *HR* Heparin 10,000 UNIT/10 ML VIAL IV PRN ×2 (07:58)
[2020-08-11] MEDS ORDERED: 0.9 % Sodium Chloride 1,000 ML PRIME SCH (08:00)
[2020-08-11] MEDS: allopurinoL 100 MG TABLET PO SCH (08:34)
[2020-08-11] MEDS: Lactulose Oral Soln 20 GM/30 ML UDC PO SCH ×3 (08:34→20:34)
[2020-08-11] MEDS: Metoprolol XL (24 HR) Succ 25 MG TAB.ER.24H PO SCH (13:27)
[2020-08-11] MEDS: QUEtiapine Fumarate 25 MG TABLET PO SCH (20:33)
[2020-08-12 06:21] LABS: Hemoglobin 7.4 g/dL (12.9-16.9); Red Cell Distribution Width 18.8 % (11.5-14.5)
[2020-08-12 06:23] LABS: Hematocrit 23.2 % (37.5-50.1); Immature Platelets 4.3 % (1.1-6.1); Mean Corpuscular HGB Conc 31.9 g/dL (31.6-35.5); Mean Corpuscular Hemoglobin 34.7 pg (28.0-33.3); Mean Corpuscular Volume 108.9 fL (83.0-100.0); Mean Platelet Volume 12.4 fL (9.4-12.4); Red Blood Count 2.13 M/mcL (4.19-5.50); White Blood Count 2.5 K/mcL (4.3-11.1)
[2020-08-12 06:32] LABS: INR 1.3; Prothrombin Time 15.3 Seconds (9.4-12.1)
[2020-08-12 06:41] LABS: Calcium 9.7 mg/dL (8.6-10.3); Magnesium 1.6 mg/dL (1.6-2.6); Phosphorous 3.2 mg/dL (2.7-4.5); Potassium 4.3 mEq/L (3.5-5.1)
[2020-08-12] MEDS: allopurinoL 100 MG TABLET PO SCH (09:34)
[2020-08-12] MEDS: Metoprolol XL (24 HR) Succ 25 MG TAB.ER.24H PO SCH (09:35)
[2020-08-12] MEDS: Lactulose Oral Soln 20 GM/30 ML UDC PO SCH ×3 (09:37→20:48)
[2020-08-12] MEDS: QUEtiapine Fumarate 25 MG TABLET PO SCH (20:48)
[2020-08-13] MEDS ORDERED: 0.9 % Sodium Chloride 250 ML ONE (04:25)
[2020-08-13 05:02] LABS: Hematocrit 23.9 % (37.5-50.1)
[2020-08-13 05:04] LABS: Hemoglobin 7.5 g/dL (12.9-16.9); Immature Platelets 3.2 % (1.1-6.1); Mean Corpuscular HGB Conc 31.4 g/dL (31.6-35.5); Mean Corpuscular Hemoglobin 33.8 pg (28.0-33.3); Mean Corpuscular Volume 107.7 fL (83.0-100.0); Mean Platelet Volume 11.3 fL (9.4-12.4); Red Blood Count 2.22 M/mcL (4.19-5.50); Red Cell Distribution Width 18.4 % (11.5-14.5); White Blood Count 2.2 K/mcL (4.3-11.1)
[2020-08-13 06:49] LABS: Calcium 11.1 mg/dL (8.6-10.3); Potassium 4.2 mEq/L (3.5-5.1)
[2020-08-13] MEDS ORDERED: *HR* Heparin 10,000 UNIT/10 ML VIAL IV PRN (07:29)
[2020-08-13] MEDS ORDERED: 0.9 % Sodium Chloride 250 ML IVC PRN (07:29)
[2020-08-13] MEDS ORDERED: 0.9 % Sodium Chloride 1,000 ML PRIME SCH (07:30)
[2020-08-13 10:10] LABS: Basophils % 0.9 %; Eosinophils # 0.2 K/mcL (0.0-0.6); Eosinophils % 6.8 %; Hematocrit 23.9 % (37.5-50.1); Hemoglobin 7.6 g/dL (12.9-16.9); Immature Granulocytes % 0.4 % (0-4); Lymphocytes # 0.3 K/mcL (0.6-4.6); Lymphocytes % 11.1 %; Mean Corpuscular HGB Conc 31.8 g/dL (31.6-35.5); Mean Corpuscular Hemoglobin 34.5 pg (28.0-33.3); Mean Corpuscular Volume 108.6 fL (83.0-100.0); Monocytes # 0.2 K/mcL (0.0-1.3); Monocytes % 9.8 %; Neutrophils # 1.7 K/mcL (1.6-8.9); Red Cell Distribution Width 18.4 % (11.5-14.5); White Blood Count 2.4 K/mcL (4.3-11.1)
[2020-08-13 10:11] LABS: Platelet Count 54 K/mcL (140-400)
[2020-08-13] MEDS: Lactulose Oral Soln 20 GM/30 ML UDC PO SCH ×3 (10:27→23:21)
[2020-08-13] MEDS: allopurinoL 100 MG TABLET PO SCH (10:27)
[2020-08-13] MEDS: Metoprolol XL (24 HR) Succ 25 MG TAB.ER.24H PO SCH (10:27)
[2020-08-13 11:59] LABS: Basophils % 0.8 %; Immature Granulocytes % 0.4 % (0-4)
[2020-08-13 12:00] LABS: Eosinophils # 0.2 K/mcL (0.0-0.6); Eosinophils % 6.5 %; Hematocrit 25.1 % (37.5-50.1); Hemoglobin 7.9 g/dL (12.9-16.9); Immature Platelets 2.9 % (1.1-6.1); Lymphocytes # 0.3 K/mcL (0.6-4.6); Lymphocytes % 12.1 %; Mean Corpuscular HGB Conc 31.5 g/dL (31.6-35.5); Mean Corpuscular Hemoglobin 33.8 pg (28.0-33.3); Mean Corpuscular Volume 107.3 fL (83.0-100.0); Mean Platelet Volume 11.2 fL (9.4-12.4); Monocytes # 0.3 K/mcL (0.0-1.3); Monocytes % 11.7 %; Neutrophils # 1.7 K/mcL (1.6-8.9); Red Blood Count 2.34 M/mcL (4.19-5.50); Red Cell Distribution Width 18.6 % (11.5-14.5); Segmented Neutrophils % 68.5 %; White Blood Count 2.5 K/mcL (4.3-11.1)
[2020-08-13 12:02] LABS: Platelet Count 52 K/mcL (140-400)
[2020-08-13 12:53] LABS: Adenovirus Not Detected (Not Detect); Bordetella Pertussis Not Detected (Not Detect); Chlamydophila pneumoniae Not Detected (Not Detect); Coronavirus 229E Not Detected (Not Detect); Coronavirus HKU1 Not Detected (Not Detect); Coronavirus NL63 Not Detected (Not Detect); Coronavirus OC43 Not Detected (Not Detect); Human Metapneumovirus Not Detected (Not Detect); Human Rhinovirus/Enterovirus Not Detected (Not Detect); Influenza A Subtype 2009 H1 Not Detected (Not Detect); Influenza B Not Detected (Not Detect); Mycoplasma pneumoniae Not Detected (Not Detect); Parainfluenza Virus 1 Not Detected (Not Detect); Parainfluenza Virus 2 Not Detected (Not Detect); Parainfluenza Virus 3 Not Detected (Not Detect); Parainfluenza Virus 4 Not Detected (Not Detect); Respiratory Syncytial Virus Not Detected (Not Detect); SARS-CoV-2 Not Detected (Not Detect)
[2020-08-13] MEDS: Haloperidol Lactate 5 MG/ML VIAL IVP PRN (16:23)
[2020-08-13] MEDS: QUEtiapine Fumarate 25 MG TABLET PO SCH (23:20)
[2020-08-14] MEDS ORDERED: 0.9 % Sodium Chloride 250 ML ONE (00:21)
[2020-08-14 05:24] LABS: Hemoglobin 7.1 g/dL (12.9-16.9)
[2020-08-14 05:26] LABS: Basophils % 0.6 %; Eosinophils # 0.1 K/mcL (0.0-0.6); Eosinophils % 7.5 %; Hematocrit 22.1 % (37.5-50.1); Immature Granulocytes % 0.6 % (0-4); Immature Platelets 2.3 % (1.1-6.1); Lymphocytes # 0.3 K/mcL (0.6-4.6); Lymphocytes % 19.1 %; Mean Corpuscular HGB Conc 32.1 g/dL (31.6-35.5); Mean Corpuscular Hemoglobin 35.1 pg (28.0-33.3); Mean Corpuscular Volume 109.4 fL (83.0-100.0); Mean Platelet Volume 11.9 fL (9.4-12.4); Monocytes # 0.2 K/mcL (0.0-1.3); Monocytes % 12.7 %; Red Blood Count 2.02 M/mcL (4.19-5.50); Red Cell Distribution Width 18.5 % (11.5-14.5); Segmented Neutrophils % 59.5 %; White Blood Count 1.7 K/mcL (4.3-11.1)
[2020-08-14 05:36] LABS: Platelet Count 47 K/mcL (140-400)
[2020-08-14 05:42] LABS: Calcium 10.2 mg/dL (8.6-10.3); Potassium 3.9 mEq/L (3.5-5.1)
[2020-08-14] MEDS: allopurinoL 100 MG TABLET PO SCH (09:15)
[2020-08-14] MEDS: Lactulose Oral Soln 20 GM/30 ML UDC PO SCH ×3 (09:15→20:25)
[2020-08-14] MEDS: Metoprolol XL (24 HR) Succ 25 MG TAB.ER.24H PO SCH (09:15)
[2020-08-14 09:54] LABS: Basophils % 0.6 %; Eosinophils # 0.2 K/mcL (0.0-0.6); Eosinophils % 10.9 %; Hematocrit 23.2 % (37.5-50.1); Hemoglobin 7.2 g/dL (12.9-16.9); Immature Granulocytes % 0.6 % (0-4); Lymphocytes # 0.4 K/mcL (0.6-4.6); Lymphocytes % 21.2 %; Mean Corpuscular Hemoglobin 34.3 pg (28.0-33.3); Mean Corpuscular Volume 110.5 fL (83.0-100.0); Mean Platelet Volume 12.1 fL (9.4-12.4); Monocytes # 0.2 K/mcL (0.0-1.3); Monocytes % 12.7 %; Neutrophils # 0.9 K/mcL (1.6-8.9); Red Cell Distribution Width 18.4 % (11.5-14.5); White Blood Count 1.7 K/mcL (4.3-11.1)
[2020-08-14 09:55] LABS: Platelet Count 49 K/mcL (140-400)
[2020-08-14 10:23] LABS: Large Platelets Present (Not Present); Platelet Estimate Decreased (Normal)
[2020-08-14] MEDS ORDERED: Heparin 1,000 UNITS/500 mL 500 ML ONE (11:05)
[2020-08-14] MEDS ORDERED: *HR* FentaNYL (PF) 100 MCG/2 ML VIAL IVP ONE (11:30)
[2020-08-14] MEDS ORDERED: CeFAZolin 2,000 MG/50 ML BAG IVPB ONE (11:30)
[2020-08-14] MEDS ORDERED: *HR* Midazolam HCl 2 MG/2 ML VIAL IVP ONE (11:30)
[2020-08-14] MEDS ORDERED: *HR* Heparin 5,000 UNIT/ML VIAL ONE (11:34)
[2020-08-14] MEDS ORDERED: 0.9 % Sodium Chloride 500 ML ONE (11:34)
[2020-08-14] MEDS: QUEtiapine Fumarate 25 MG TABLET PO SCH (20:24)
[2020-08-15 06:10] LABS: Hematocrit 22.6 % (37.5-50.1); Mean Platelet Volume 12.8 fL (9.4-12.4)
[2020-08-15 06:12] LABS: Hemoglobin 7.2 g/dL (12.9-16.9); Immature Platelets 3.4 % (1.1-6.1); Mean Corpuscular HGB Conc 31.9 g/dL (31.6-35.5); Mean Corpuscular Volume 109.7 fL (83.0-100.0); Red Blood Count 2.06 M/mcL (4.19-5.50); Red Cell Distribution Width 18.3 % (11.5-14.5); White Blood Count 1.5 K/mcL (4.3-11.1)
[2020-08-15 06:30] LABS: Calcium 10.7 mg/dL (8.6-10.3); Potassium 4.1 mEq/L (3.5-5.1)
[2020-08-15] MEDS ORDERED: 0.9 % Sodium Chloride 250 ML IVC PRN (07:46)
[2020-08-15] MEDS ORDERED: *HR* Heparin 10,000 UNIT/10 ML VIAL IV PRN (07:46)
[2020-08-15] MEDS ORDERED: 0.9 % Sodium Chloride 1,000 ML PRIME SCH (08:00)
[2020-08-15] MEDS: Lactulose Oral Soln 20 GM/30 ML UDC PO SCH ×4 (09:50→20:46)
[2020-08-15] MEDS: allopurinoL 100 MG TABLET PO SCH (09:50)
[2020-08-15] MEDS: Metoprolol XL (24 HR) Succ 25 MG TAB.ER.24H PO SCH (09:50)
[2020-08-15] MEDS: QUEtiapine Fumarate 25 MG TABLET PO SCH (20:44)
[2020-08-16 01:43] LABS: Red Cell Distribution Width 18.2 % (11.5-14.5)
[2020-08-16 01:45] LABS: Hematocrit 21.6 % (37.5-50.1); Hemoglobin 6.9 g/dL (12.9-16.9); Immature Platelets 2.7 % (1.1-6.1); Lymphocytes # 0.4 K/mcL (0.6-4.6); Mean Corpuscular HGB Conc 31.9 g/dL (31.6-35.5); Mean Corpuscular Hemoglobin 35.2 pg (28.0-33.3); Mean Corpuscular Volume 110.2 fL (83.0-100.0); Monocytes # 0.2 K/mcL (0.0-1.3); Neutrophils # 0.6 K/mcL (1.6-8.9); Red Blood Count 1.96 M/mcL (4.19-5.50); White Blood Count 1.3 K/mcL (4.3-11.1)
[2020-08-16 01:53] LABS: Platelet Count 39 K/mcL (140-400)
[2020-08-16 02:02] LABS: Calcium 10.6 mg/dL (8.6-10.3); Potassium 3.9 mEq/L (3.5-5.1)
[2020-08-16 02:22] LABS: Basophils # 0.1 K/mcL (0.0-0.2); Eosinophils # 0.1 K/mcL (0.0-0.6)
[2020-08-16 02:23] LABS: Platelet Estimate Marked Decrease (Normal)
[2020-08-16] MEDS: Lactulose Oral Soln 20 GM/30 ML UDC PO SCH ×3 (07:30→20:30)
[2020-08-16] MEDS: allopurinoL 100 MG TABLET PO SCH (07:30)
[2020-08-16] MEDS: Metoprolol XL (24 HR) Succ 25 MG TAB.ER.24H PO SCH (07:31)
[2020-08-16] MEDS ORDERED: 0.9 % Sodium Chloride 250 ML IVC PRN (08:08)
[2020-08-16] MEDS ORDERED: *HR* Heparin 10,000 UNIT/10 ML VIAL IV PRN (08:08)
[2020-08-16 08:40] LABS: Hematocrit 23.9 % (37.5-50.1); Hemoglobin 7.6 g/dL (12.9-16.9)
[2020-08-16 11:44] LABS: C282Y Hemochromatosis Mutation NEGATIVE; H63D Hemochromatosis Mutation NEGATIVE; HFE Specimen Type WHOLE BLOOD; S65C Hemochromatosis Mutation NEGATIVE
[2020-08-16] MEDS: QUEtiapine Fumarate 25 MG TABLET PO SCH (20:29)
[2020-08-17 03:06] LABS: Hematocrit 20.6 % (37.5-50.1)
[2020-08-17 03:07] LABS: Hemoglobin 6.5 g/dL (12.9-16.9); Immature Platelets 2.6 % (1.1-6.1); Mean Corpuscular HGB Conc 31.6 g/dL (31.6-35.5); Mean Corpuscular Volume 107.9 fL (83.0-100.0); Mean Platelet Volume 12.7 fL (9.4-12.4); Red Blood Count 1.91 M/mcL (4.19-5.50); Red Cell Distribution Width 18.2 % (11.5-14.5); White Blood Count 1.3 K/mcL (4.3-11.1)
[2020-08-17 03:26] LABS: Calcium 9.2 mg/dL (8.6-10.3); Potassium 3.8 mEq/L (3.5-5.1)
[2020-08-17] MEDS ORDERED: 0.9 % Sodium Chloride 250 ML IVC SCH (08:45)
[2020-08-17] MEDS: Metoprolol XL (24 HR) Succ 25 MG TAB.ER.24H PO SCH (08:45)
[2020-08-17] MEDS: allopurinoL 100 MG TABLET PO SCH (08:46)
[2020-08-17] MEDS: Lactulose Oral Soln 20 GM/30 ML UDC PO SCH ×3 (08:47→20:25)
[2020-08-17 16:41] LABS: Hematocrit 25.3 % (37.5-50.1); Hemoglobin 8.3 g/dL (12.9-16.9)
[2020-08-17] MEDS: QUEtiapine Fumarate 25 MG TABLET PO SCH (20:24)
[2020-08-18 06:30] LABS: Hemoglobin 7.6 g/dL (12.9-16.9); Immature Granulocytes % 0.6 % (0-4); Red Cell Distribution Width 18.6 % (11.5-14.5)
[2020-08-18 06:33] LABS: Basophils % 1.2 %; Eosinophils # 0.2 K/mcL (0.0-0.6); Eosinophils % 12.6 %; Hematocrit 23.7 % (37.5-50.1); Immature Platelets 2.9 % (1.1-6.1); Lymphocytes # 0.5 K/mcL (0.6-4.6); Lymphocytes % 26.9 %; Mean Corpuscular HGB Conc 32.1 g/dL (31.6-35.5); Mean Corpuscular Hemoglobin 33.6 pg (28.0-33.3); Mean Corpuscular Volume 104.9 fL (83.0-100.0); Mean Platelet Volume 12.9 fL (9.4-12.4); Monocytes # 0.2 K/mcL (0.0-1.3); Neutrophils # 0.8 K/mcL (1.6-8.9); Nucleated Red Blood Cells 1.2 /100 WBC (0); Red Blood Count 2.26 M/mcL (4.19-5.50); Segmented Neutrophils % 46.7 %; White Blood Count 1.7 K/mcL (4.3-11.1)
[2020-08-18 06:34] LABS: Platelet Count 36 K/mcL (140-400)
[2020-08-18 06:52] LABS: Anisocytosis 1+ (Not Present); Hypochromasia Present (Not Present); Platelet Estimate Marked Decrease (Normal)
[2020-08-18 06:55] LABS: Calcium 10.5 mg/dL (8.6-10.3); Potassium 3.7 mEq/L (3.5-5.1)
[2020-08-18] MEDS ORDERED: 0.9 % Sodium Chloride 250 ML IVC PRN (08:01)
[2020-08-18] MEDS ORDERED: *HR* Heparin 10,000 UNIT/10 ML VIAL IV PRN (08:07)
[2020-08-18] MEDS: Lactulose Oral Soln 20 GM/30 ML UDC PO SCH ×3 (09:19→19:26)
[2020-08-18] MEDS: allopurinoL 100 MG TABLET PO SCH (09:21)
[2020-08-18] MEDS: Metoprolol XL (24 HR) Succ 25 MG TAB.ER.24H PO SCH (09:21)
[2020-08-18] MEDS: QUEtiapine Fumarate 25 MG TABLET PO SCH (19:35)
[2020-08-19 06:57] LABS: Calcium 9.4 mg/dL (8.6-10.3); Potassium 3.4 mEq/L (3.5-5.1)
[2020-08-19 07:01] LABS: Hemoglobin 8.5 g/dL (12.9-16.9)
[2020-08-19 07:03] LABS: Hematocrit 26.2 % (37.5-50.1); Immature Platelets 4.1 % (1.1-6.1); Mean Corpuscular HGB Conc 32.4 g/dL (31.6-35.5); Mean Corpuscular Hemoglobin 33.7 pg (28.0-33.3); Mean Platelet Volume 13.6 fL (9.4-12.4); Red Blood Count 2.52 M/mcL (4.19-5.50); Red Cell Distribution Width 19.1 % (11.5-14.5); White Blood Count 1.8 K/mcL (4.3-11.1)
[2020-08-19] MEDS: Metoprolol XL (24 HR) Succ 25 MG TAB.ER.24H PO SCH (08:00)
[2020-08-19] MEDS: allopurinoL 100 MG TABLET PO SCH (08:00)
[2020-08-19] MEDS: Lactulose Oral Soln 20 GM/30 ML UDC PO SCH ×4 (08:00→20:05)
[2020-08-19] MEDS: QUEtiapine Fumarate 25 MG TABLET PO SCH (20:04)
[2020-08-20 05:10] LABS: Hemoglobin 9.1 g/dL (12.9-16.9)
[2020-08-20 05:12] LABS: Hematocrit 28.3 % (37.5-50.1); Immature Platelets 3.8 % (1.1-6.1); Mean Corpuscular HGB Conc 32.2 g/dL (31.6-35.5); Mean Corpuscular Hemoglobin 33.2 pg (28.0-33.3); Mean Corpuscular Volume 103.3 fL (83.0-100.0); Mean Platelet Volume 12.6 fL (9.4-12.4); Red Blood Count 2.74 M/mcL (4.19-5.50); Red Cell Distribution Width 18.3 % (11.5-14.5); White Blood Count 2.1 K/mcL (4.3-11.1)
[2020-08-20 05:27] LABS: Calcium 10.8 mg/dL (8.6-10.3); Potassium 3.3 mEq/L (3.5-5.1)
[2020-08-20] MEDS ORDERED: 0.9 % Sodium Chloride 2,000 ML ONE (06:35)
[2020-08-20] MEDS: allopurinoL 100 MG TABLET PO SCH (07:36)
[2020-08-20] MEDS: Lactulose Oral Soln 20 GM/30 ML UDC PO SCH ×3 (07:36→20:02)
[2020-08-20] MEDS: Metoprolol XL (24 HR) Succ 25 MG TAB.ER.24H PO SCH (07:36)
[2020-08-20] MEDS: QUEtiapine Fumarate 25 MG TABLET PO SCH (20:02)
[2020-08-21 03:26] LABS: Hemoglobin 8.3 g/dL (12.9-16.9)
[2020-08-21 03:28] LABS: Basophils % 0.9 %; Eosinophils # 0.3 K/mcL (0.0-0.6); Eosinophils % 12.9 %; Hematocrit 25.9 % (37.5-50.1); Immature Granulocytes % 0.4 % (0-4); Immature Platelets 3.2 % (1.1-6.1); Lymphocytes # 0.6 K/mcL (0.6-4.6); Lymphocytes % 26.8 %; Mean Corpuscular Hemoglobin 33.2 pg (28.0-33.3); Mean Corpuscular Volume 103.6 fL (83.0-100.0); Mean Platelet Volume 12.5 fL (9.4-12.4); Monocytes # 0.2 K/mcL (0.0-1.3); Monocytes % 10.7 %; Neutrophils # 1.1 K/mcL (1.6-8.9); Segmented Neutrophils % 48.3 %; White Blood Count 2.2 K/mcL (4.3-11.1)
[2020-08-21 03:37] LABS: Calcium 10.3 mg/dL (8.6-10.3); Potassium 3.9 mEq/L (3.5-5.1)
[2020-08-21 03:47] LABS: Platelet Count 44 K/mcL (140-400)
[2020-08-21] MEDS: Lactulose Oral Soln 20 GM/30 ML UDC PO SCH ×3 (08:03→20:38)
[2020-08-21] MEDS: allopurinoL 100 MG TABLET PO SCH (08:05)
[2020-08-21] MEDS: Metoprolol XL (24 HR) Succ 25 MG TAB.ER.24H PO SCH (08:05)
[2020-08-21] MEDS: QUEtiapine Fumarate 25 MG TABLET PO SCH (20:38)
[2020-08-21] MEDS ORDERED: *HR* Promethazine 25 MG/ML VIAL IVP ONE (21:39)
[2020-08-22 02:35] LABS: Hematocrit 28.9 % (37.5-50.1); Hemoglobin 9.1 g/dL (12.9-16.9); Mean Corpuscular HGB Conc 31.5 g/dL (31.6-35.5); Mean Corpuscular Hemoglobin 32.7 pg (28.0-33.3); Mean Platelet Volume 12.3 fL (9.4-12.4); Red Blood Count 2.78 M/mcL (4.19-5.50); Red Cell Distribution Width 17.9 % (11.5-14.5); White Blood Count 2.3 K/mcL (4.3-11.1)
[2020-08-22] MEDS: Lactulose Oral Soln 20 GM/30 ML UDC PO SCH ×3 (07:43→19:56)
[2020-08-22] MEDS: allopurinoL 100 MG TABLET PO SCH (07:44)
[2020-08-22] MEDS: Metoprolol XL (24 HR) Succ 25 MG TAB.ER.24H PO SCH (07:44)
[2020-08-22] MEDS ORDERED: *HR* Heparin 10,000 UNIT/10 ML VIAL IV PRN (08:10)
[2020-08-22] MEDS ORDERED: 0.9 % Sodium Chloride 250 ML IVC PRN (08:10)
[2020-08-22] MEDS ORDERED: 0.9 % Sodium Chloride 1,000 ML PRIME SCH (08:15)
[2020-08-22] MEDS: QUEtiapine Fumarate 25 MG TABLET PO SCH (19:55)
[2020-08-23 03:38] LABS: INR 1.3; Prothrombin Time 14.5 Seconds (9.4-12.1)
[2020-08-23 03:42] LABS: Basophils % 0.5 %; Eosinophils # 0.2 K/mcL (0.0-0.6); Eosinophils % 10.7 %; Hematocrit 27.5 % (37.5-50.1); Hemoglobin 8.7 g/dL (12.9-16.9); Immature Granulocytes % 0.5 % (0-4); Immature Platelets 2.9 % (1.1-6.1); Lymphocytes # 0.5 K/mcL (0.6-4.6); Lymphocytes % 26.9 %; Mean Corpuscular HGB Conc 31.6 g/dL (31.6-35.5); Mean Corpuscular Volume 104.2 fL (83.0-100.0); Mean Platelet Volume 11.6 fL (9.4-12.4); Monocytes # 0.3 K/mcL (0.0-1.3); Monocytes % 13.7 %; Platelet Count 56 K/mcL (140-400); Red Blood Count 2.64 M/mcL (4.19-5.50); Red Cell Distribution Width 18.2 % (11.5-14.5); Segmented Neutrophils % 47.7 %
[2020-08-23 03:48] LABS: Calcium 10.4 mg/dL (8.6-10.3); Potassium 3.6 mEq/L (3.5-5.1)
[2020-08-23] MEDS: Metoprolol XL (24 HR) Succ 25 MG TAB.ER.24H PO SCH (10:21)
[2020-08-23] MEDS: allopurinoL 100 MG TABLET PO SCH (10:21)
[2020-08-23] MEDS: Lactulose Oral Soln 20 GM/30 ML UDC PO SCH ×3 (10:24→20:28)
[2020-08-23] MEDS: QUEtiapine Fumarate 25 MG TABLET PO SCH (20:26)
[2020-08-24] MEDS: Metoprolol XL (24 HR) Succ 25 MG TAB.ER.24H PO SCH (08:24)
[2020-08-24] MEDS: allopurinoL 100 MG TABLET PO SCH (08:24)
[2020-08-24] MEDS: Lactulose Oral Soln 20 GM/30 ML UDC PO SCH ×3 (08:25→18:56)
[2020-08-24] MEDS: QUEtiapine Fumarate 25 MG TABLET PO SCH (20:01)
[2020-08-25 04:28] LABS: Mean Platelet Volume 11.9 fL (9.4-12.4); Red Cell Distribution Width 17.9 % (11.5-14.5)
[2020-08-25 04:30] LABS: Hematocrit 28.5 % (37.5-50.1); Hemoglobin 9.1 g/dL (12.9-16.9); Immature Platelets 2.4 % (1.1-6.1); Mean Corpuscular HGB Conc 31.9 g/dL (31.6-35.5); Mean Corpuscular Hemoglobin 33.8 pg (28.0-33.3); Mean Corpuscular Volume 105.9 fL (83.0-100.0); Red Blood Count 2.69 M/mcL (4.19-5.50); White Blood Count 2.1 K/mcL (4.3-11.1)
[2020-08-25 04:43] LABS: Calcium 12.4 mg/dL (8.6-10.3); Magnesium 1.4 mg/dL (1.6-2.6); Phosphorous 5.3 mg/dL (2.7-4.5); Potassium 3.7 mEq/L (3.5-5.1)
[2020-08-25] MEDS ORDERED: 0.9 % Sodium Chloride 250 ML IVC PRN (07:14)
[2020-08-25] MEDS: allopurinoL 100 MG TABLET PO SCH (08:24)
[2020-08-25] MEDS: Metoprolol XL (24 HR) Succ 25 MG TAB.ER.24H PO SCH (08:25)
[2020-08-25] MEDS: Lactulose Oral Soln 20 GM/30 ML UDC PO SCH ×3 (08:25→19:51)
[2020-08-25] MEDS ORDERED: *HR* Heparin 10,000 UNIT/10 ML VIAL IV PRN (10:07)
[2020-08-25] MEDS: QUEtiapine Fumarate 25 MG TABLET PO SCH (19:49)
[2020-08-26 01:33] LABS: Basophils % 1.3 %; Hemoglobin 9.5 g/dL (12.9-16.9); Lymphocytes % 23.5 %
[2020-08-26 01:35] LABS: Eosinophils # 0.1 K/mcL (0.0-0.6); Eosinophils % 5.1 %; Hematocrit 29.9 % (37.5-50.1); Immature Granulocytes % 0.4 % (0-4); Mean Corpuscular HGB Conc 31.8 g/dL (31.6-35.5); Mean Corpuscular Hemoglobin 34.1 pg (28.0-33.3); Mean Corpuscular Volume 107.2 fL (83.0-100.0); Mean Platelet Volume 12.1 fL (9.4-12.4); Monocytes # 0.3 K/mcL (0.0-1.3); Monocytes % 13.7 %; Neutrophils # 1.3 K/mcL (1.6-8.9); Red Blood Count 2.79 M/mcL (4.19-5.50); Red Cell Distribution Width 17.8 % (11.5-14.5); White Blood Count 2.3 K/mcL (4.3-11.1)
[2020-08-26 01:45] LABS: Lymphocytes # 0.5 K/mcL (0.6-4.6); Platelet Count 69 K/mcL (140-400)
[2020-08-26 01:47] LABS: INR 1.3; Prothrombin Time 14.3 Seconds (9.4-12.1)
[2020-08-26 01:52] LABS: Calcium 10.9 mg/dL (8.6-10.3); Potassium 3.6 mEq/L (3.5-5.1)
[2020-08-26] MEDS: Lactulose Oral Soln 20 GM/30 ML UDC PO SCH ×3 (08:24→21:16)
[2020-08-26] MEDS: allopurinoL 100 MG TABLET PO SCH (09:17)
[2020-08-26] MEDS: Metoprolol XL (24 HR) Succ 25 MG TAB.ER.24H PO SCH (09:18)
[2020-08-26] MEDS: QUEtiapine Fumarate 25 MG TABLET PO SCH (21:16)
[2020-08-27 06:10] LABS: INR 1.3; Prothrombin Time 15.2 Seconds (9.4-12.1)
[2020-08-27 06:14] LABS: Basophils % 0.9 %
[2020-08-27 06:16] LABS: Eosinophils # 0.1 K/mcL (0.0-0.6); Eosinophils % 4.3 %; Hemoglobin 8.8 g/dL (12.9-16.9); Immature Granulocytes % 0.4 % (0-4); Immature Platelets 1.5 % (1.1-6.1); Lymphocytes # 0.6 K/mcL (0.6-4.6); Lymphocytes % 26.1 %; Mean Corpuscular HGB Conc 32.6 g/dL (31.6-35.5); Mean Corpuscular Hemoglobin 33.8 pg (28.0-33.3); Mean Corpuscular Volume 103.8 fL (83.0-100.0); Mean Platelet Volume 11.6 fL (9.4-12.4); Monocytes # 0.3 K/mcL (0.0-1.3); Monocytes % 14.3 %; Neutrophils # 1.2 K/mcL (1.6-8.9); Red Cell Distribution Width 17.7 % (11.5-14.5); White Blood Count 2.3 K/mcL (4.3-11.1)
[2020-08-27 06:20] LABS: Platelet Count 63 K/mcL (140-400)
[2020-08-27 06:32] LABS: Calcium 12.7 mg/dL (8.6-10.3); Potassium 3.4 mEq/L (3.5-5.1)
[2020-08-27] MEDS: Lactulose Oral Soln 20 GM/30 ML UDC PO SCH ×3 (08:37→21:27)
[2020-08-27] MEDS: allopurinoL 100 MG TABLET PO SCH (08:39)
[2020-08-27] MEDS: Metoprolol XL (24 HR) Succ 25 MG TAB.ER.24H PO SCH (08:39)
[2020-08-27] MEDS ORDERED: Ondansetron 4 MG/2 ML VIAL IVP PRN (15:59)
[2020-08-27] MEDS: QUEtiapine Fumarate 25 MG TABLET PO SCH (21:27)
[2020-08-28 05:01] LABS: Calcium 12.6 mg/dL (8.6-10.3); Potassium 3.5 mEq/L (3.5-5.1)
[2020-08-28] MEDS: Metoprolol XL (24 HR) Succ 25 MG TAB.ER.24H PO SCH (09:49)
[2020-08-28] MEDS: allopurinoL 100 MG TABLET PO SCH (09:49)
[2020-08-28] MEDS: Lactulose Oral Soln 20 GM/30 ML UDC PO SCH ×3 (09:49→20:02)
[2020-08-28] MEDS: QUEtiapine Fumarate 25 MG TABLET PO SCH (20:02)
[2020-08-29 02:12] LABS: Calcium 12.3 mg/dL (8.6-10.3); Potassium 3.8 mEq/L (3.5-5.1)
[2020-08-29] MEDS ORDERED: 0.9 % Sodium Chloride 250 ML IVC PRN (06:17)
[2020-08-29] MEDS ORDERED: *HR* Heparin 10,000 UNIT/10 ML VIAL IV PRN (10:23)
[2020-08-29] MEDS: Lactulose Oral Soln 20 GM/30 ML UDC PO SCH ×2 (12:03→16:57)
[2020-08-29] MEDS: allopurinoL 100 MG TABLET PO SCH (12:07)
[2020-08-29] MEDS: Metoprolol XL (24 HR) Succ 25 MG TAB.ER.24H PO SCH (12:07)
[2020-08-29 15:21] LABS: Adenovirus Not Detected (Not Detect); Bordetella Pertussis Not Detected (Not Detect); Chlamydophila pneumoniae Not Detected (Not Detect); Coronavirus 229E Not Detected (Not Detect); Coronavirus HKU1 Not Detected (Not Detect); Coronavirus NL63 Not Detected (Not Detect); Coronavirus OC43 Not Detected (Not Detect); Human Metapneumovirus Not Detected (Not Detect); Human Rhinovirus/Enterovirus Not Detected (Not Detect); Influenza A Subtype 2009 H1 Not Detected (Not Detect); Influenza B Not Detected (Not Detect); Mycoplasma pneumoniae Not Detected (Not Detect); Parainfluenza Virus 1 Not Detected (Not Detect); Parainfluenza Virus 2 Not Detected (Not Detect); Parainfluenza Virus 3 Not Detected (Not Detect); Parainfluenza Virus 4 Not Detected (Not Detect); Respiratory Syncytial Virus Not Detected (Not Detect); SARS-CoV-2 Not Detected (Not Detect)
[2020-08-29 15:42] VITALS: BP 113/68
== END 2020-08-29 18:07 | DRG 91 ==
LOC: CDU → ICNU 07-31 00:21 → SUATTDRO 07-31 01:38 → 2ANU 08-01 13:39
PROVIDERS: ADMIT Internal Medicine; ATTEND Internal Medicine
PROC: IRPERMA (2020-08-14 12:00)